=== PATIENT | male | born 1990 | race Caucasian/White ===

== ENCOUNTER 2023-09-04 08:14 | Emergency (ER) | payer OTHER ==
[~2023-09-04] VITALS: Ht 182.9 cm; Wt 54.4 kg
[2023-09-04 08:22] VITALS: BP 121/80; TEMP 98.1
[2023-09-04] MEDS: TDAP [DIPH/PERTUSSIS/TET] 0.5 ML VIAL IM ONE (08:30)
[2023-09-04] MEDS: AMOX/CLAVULANATE 875 MG TABLET PO ONE (08:30)
[2023-09-04] MEDS ORDERED: AMOX/CLAVULANATE 875 MG TABLET ONE (08:38)
[2023-09-04] MEDS ORDERED: TDAP [DIPH/PERTUSSIS/TET] 0.5 ML VIAL IM ONE (08:39)
[2023-09-04] MEDS ORDERED: AMOX-430 PO (09:20)
[2023-09-04 09:26] VITALS: O2SAT 100
== END 2023-09-04 09:26 | disposition home or self-care (01) ==
LOC: ER 08:24
DX: S61.431A Puncture wound without foreign body of right hand, initial encounter (principal); S81.831A Puncture wound without foreign body, right lower leg, initial encounter; W54.0XXA Bitten by dog, initial encounter; Y93.89 Activity, other specified; Y92.89 Other specified places as the place of occurrence of the external cause; Y99.8 Other external cause status
CPT/HCPCS: 99283; 90471; 90715; A6403